=== PATIENT | male | born 1975 | race Caucasian/White ===

== ENCOUNTER 2023-02-04 06:17 | Emergency (ER) | payer OTHER, SELFPAY ==
[2023-02-04 06:24] VITALS: BP 172/118; PULSE 98; RESP 17; TEMP 36.8; O2SAT 97
[2023-02-04 07:11] VITALS: BP 159/103; PULSE 88; RESP 18; O2SAT 95
--- NOTE | 2023-02-04 08:04 | ED.EPISTAXIS ---
HPI - Epistaxis General Chief complaint: Epistaxis Stated complaint: nose bleed Time Seen by Provider: 02/04/23 07:02 History of Present Illness HPI Narrative: Patient is a 47-year-old male who presents ER with a nosebleed. Ongoing since approximately 5 AM. He woke up and felt a little moisture in his nose. He held his head over the sink in hopes that it would stop but did not so he came to the ER. He is on no blood thinning medications. Reports he has history of nose bleeding from the left side and is very cautious with his nose. He has had cautery in the past. No recent sinus congestion or sore throat or cough. No increase in blowing his nose or known digital trauma. Related Data Allergies Allergy/AdvReac Type Severity Reaction Status Date / Time Penicillins Allergy Unconscious Verified 02/04/23 06:19 Review of Systems Constitutional: Constitutional: Denies chills and Denies fever(s) ENT: Reports epistaxis, Denies nasal congestion and Denies sore throat PMFSH Past Medical History Medical History (Updated 02/04/23 @ 08:07 by Braulio Ibarra MD) Healthy adult male Surgical History Surgical History (Updated 02/04/23 @ 08:07 by Braulio Ibarra MD) No pertinent past surgical history Exam Narrative: GENERAL: Well-appearing, well-nourished, and in no acute distress. HEAD: Normocephalic, atraumatic. ENT: Mucous membranes moist. Thin blood clot left naris. After removal of small using area over the septum. Right naris normal. NECK: Supple. NEURO: No focal deficits. Alert and oriented x3. PSYCH: Normal mood and affect. Course Course Emergency Course: Patient tolerated cautery of anterior epistaxis. Discussed treatment plan for home and patient verbalized understanding. Discharge. Vital Signs Vital signs: Vital Signs Temperature 98.2 F 02/04/23 06:24 Pulse Rate 98 02/04/23 06:24 Respiratory Rate 17 02/04/23 06:24 Blood Pressure 172/118 H 02/04/23 06:24 Pulse Oximetry 97 02/04/23 06:24 Oxygen Delivery Room Air 02/04/23 06:24 Temperature 98.2 F 02/04/23 06:24 Pulse Rate 88 02/04/23 07:11 Respiratory Rate 18 02/04/23 07:11 Blood Pressure 159/103 H 02/04/23 07:11 Pulse Oximetry 95 02/04/23 07:11 Oxygen Delivery Room Air 02/04/23 06:24 Procedures Epistaxis Control left: Epistaxis Control Date: 02/04/23 Epistaxis Control Time: 07:30 Time Out Performed: No Direct Inspection: yes and anterior source identified Clots Removed by: manually Cautery Used: silver nitrate Patient Tolerated Procedure: well Discharge Plan Discharge Clinical Impression: Epistaxis Patient Disposition: Home, Self-Care Condition: Stable Instructions: Nosebleed (ED) Additional Instructions: Return to the ER if you have severe uncontrolled bleeding that lasts longer than 20 minutes, you lose consciousness, or you are not able to breathe. After a severe episode of nosebleeding you may have a bowel movement that appears to have blood in it. This is due to the fact that you have swallowed a lot of blood. In order to prevent nosebleeds it is recommended that you use Celebration nasal spray to increase moisture in your nose, you apply Vaseline as a barrier cream with a Q-tip, and that you use a humidifier/vaporizer in your bedroom at night. If you have oxymetazoline (Afrin) available, this can be used twice a day for no longer than 3 days. It can help control your bleeding. You may use claritin or zyrtec as nasal decongestants if your have a runny/stuffy nose. Follow-up/Referrals: Markos Lopez MD [Physician] - PHYSICIAN,[employer] [Primary Care Provider] -
[2023-02-04 08:27] VITALS: BP 148/104; PULSE 94; RESP 18; O2SAT 96
== END 2023-02-04 08:29 | disposition home or self-care (01) ==
PROVIDERS: Emergency Provider Emergency Medicine
DX: R04.0 Epistaxis (principal)
CPT/HCPCS: 30901; 99282